=== PATIENT | male | born 1950 | race Caucasian/White ===

== ENCOUNTER 2017-08-12 02:52 | Inpatient (IN) | payer MEDICARE, OTHER ==
[2017-08-12 03:37] LABS: ADD MAN DIFF? NO
[2017-08-12 03:52] LABS: INR 1.11; PROTIME 14.5 Sec (11.9-14.9); PT RATIO 1.1
[2017-08-12] MEDS: NITROGLYCERIN 2% 1 GM OINT PKT TD (03:52)
[2017-08-12 03:53] LABS: PARTIAL THROMBOPLASTIN TIME 26.9 Sec (25.0-35.0)
[2017-08-12 03:56] LABS: ALANINE AMINOTRANSFERASE 37 IU/L (13-69); ALBUMIN 3.6 g/dl (3.3-4.9); ALBUMIN/GLOBULIN RATIO 1.09; ALKALINE PHOSPHATASE 78 IU/L (42-121); ANION GAP 17 (8-16); ASPARTATE AMINO TRANSFERASE 27 IU/L (15-46); BILIRUBIN,INDIRECT 0.7 mg/dl (0-1.1); BILIRUBIN,TOTAL 0.7 mg/dl (0.2-1.3); BLOOD UREA NITROGEN 35 mg/dl (7-20); CALCIUM 8.4 mg/dl (8.4-10.2); CARBON DIOXIDE 22 mmol/L (21-31); CHLORIDE 109 mmol/L (97-110); CREATININE 1.55 mg/dl (0.61-1.24); GLUCOSE 214 mg/dl (70-220); LIPASE 221 U/L (23-300); SODIUM 143 mmol/L (135-144); TOTAL PROTEIN 6.9 g/dl (6.1-8.1)
[2017-08-12 04:04] LABS: BASOPHIL # 0.1 10^3/ul (0.0-0.1); BASOPHILS % 0.8 % (0.0-2.0); EOSINOPHILS # 0.4 10^3/ul (0.0-0.5); EOSINOPHILS % 3.3 % (0.0-7.0); HEMATOCRIT 41.4 % (42.0-52.0); HEMOGLOBIN 13.1 g/dl (14.0-18.0); LYMPHOCYTES # 1.4 10^3/ul (0.8-2.9); LYMPHOCYTES % 12.5 % (15.0-51.0); MEAN CORPUSCULAR HGB CONC 31.6 g/dl (32.0-37.0); MEAN CORPUSCULAR VOLUME 94.7 fl (82.0-101.0); MONOCYTE # 0.8 10^3/ul (0.3-0.9); MONOCYTES % 6.9 % (0.0-11.0); NEUTROPHIL # 8.4 10^3/ul (1.6-7.5); NEUTROPHILS % 75.8 % (39.0-77.0); PLATELET COUNT 198 10^3/UL (140-415); RED BLOOD COUNT 4.37 10^6/ul (4.70-6.10); RED CELL DISTRIBUTION WIDTH 14.4 % (11.5-14.5)
[2017-08-12 04:35] LABS: TROPONIN-I 0.017 ng/ml (0.00-0.12)
[2017-08-12] MEDS ORDERED: ACETAMINOPHEN 325 MG TAB PO (07:30)
[2017-08-12] MEDS ORDERED: NACL 0.9% 3 ML SYG IV (07:30)
[2017-08-12] MEDS ORDERED: IPRATROPIUM (NEB) 0.5 MG/2.5 ML AMP NEB (07:30)
[2017-08-12] MEDS ORDERED: MAGNESIUM HYDROXIDE 30ML CUP PO (07:30)
[2017-08-12] MEDS ORDERED: ONDANSETRON 4 MG INJ IV (07:30)
[2017-08-12] MEDS ORDERED: LORAZEPAM 0.5 MG TAB PO (07:30)
[2017-08-12] MEDS ORDERED: BISACODYL 10 MG SUPP PR (07:30)
[2017-08-12] MEDS: LEVALBUTEROL (NEB) 1.25 MG/0.5 ML AMP HHN (07:48)
[2017-08-12] MEDS: INSULIN ASPART [NOVOLOG] 3 ML PEN SC ×7 (08:00→22:30)
[2017-08-12] MEDS ORDERED: GLUCAGON 1 MG INJ IM (09:00)
[2017-08-12] MEDS ORDERED: DEXTROSE 50% 50 ML SYRINGE IV ×2 (09:00)
[2017-08-12] MEDS ORDERED: morphine LIQ (10 MG/5 ML) CUP PO (09:00)
[2017-08-12] MEDS ORDERED: GLUCOSE GEL 15 GRAM TUBE BUCCAL (09:00)
[2017-08-12] MEDS ORDERED: GLUCOSE GEL 15 GRAM TUBE PO ×2 (09:00)
[2017-08-12] MEDS: MELOXICAM 7.5 MG TAB PO (11:14)
[2017-08-12] MEDS: HEPARIN 5,000 UNIT/0.5 ML VIAL SC (11:26)
[2017-08-12] MEDS: SENNA/DOCUSATE NA (8.6MG/50MG) TAB PO (11:27)
[2017-08-12] MEDS: TAMSULOSIN (SR) 0.4 MG CAP PO (11:27)
[2017-08-12] MEDS: FINASTERIDE 5 MG TAB PO (11:27)
[2017-08-12] MEDS: RANOLAZINE (SR) 500 MG TAB PO (11:27)
[2017-08-12] MEDS: CLOPIDOGREL 75 MG TAB PO (11:27)
[2017-08-12] MEDS: SERTRALINE 50 MG TAB PO (11:28)
[2017-08-12] MEDS: LISINOPRIL 5 MG TAB PO (11:31)
[2017-08-12] MEDS: ISOSORBIDE MONONITRATE(SR)30 MG TAB PO (11:31)
[2017-08-12] MEDS: INSULIN GLARGINE [LANtus] 3 ML PEN SC (11:43)
[2017-08-12] MEDS: NITROGLYCERIN (SL) 0.4 MG TAB SL ×2 (12:14→21:00)
[2017-08-12] MEDS: AMIODARONE 150MG/D5W BOLUS 100 ML IV ×2 (14:00→17:48)
[2017-08-12] MEDS: ENOXAPARIN 80 MG/0.8 ML SYG SC ×2 (14:00→23:43)
[2017-08-12 15:43] LABS: CREATINE KINASE 25 IU/L (23-200)
[2017-08-12 15:56] LABS: CK-MB 2.51 ng/ml (0.0-2.4); TROPONIN-I < 0.012 ng/ml (0.00-0.12)
[2017-08-12] MEDS: FUROSEMIDE 40 MG INJ IV (17:35)
[2017-08-12] MEDS: AMIODARONE 900 MG in DEXTROSE 5% 482 ML IV ×2 (17:48→18:42)
[2017-08-12 18:45] LABS: AADO2 Arterial 73.9 mmHg (7.0-24.0); Allen Test ACCEPTAB; Arterial Base Excess -2.5 mmol/L (-3.0-3); Arterial COHb 0.7 % (0.0-3.0); Arterial Fraction of Oxyhgb 96.2 % (93.0-99.0); Arterial HCO3 22.2 mmol/L (22.0-26.0); Arterial MetHb 0.1 % (0.0-1.5); Arterial Total Hemglobin 13.5 g/dl (12.0-18.0); Arterial pCO2 38.1 mmhg (35-45); MODE NASAL CANNULA; Site Right Radial
[2017-08-12] MEDS ORDERED: ATORVASTATIN 20 MG TAB (19:32)
[2017-08-12 19:39] LABS: LACTIC ACID 1.3 mmol/L (0.5-2.0)
[2017-08-12 19:55] LABS: CREATINE KINASE 27 IU/L (23-200)
[2017-08-12 20:05] LABS: CK INDEX 9.9; TROPONIN-I 0.021 ng/ml (0.00-0.12)
[2017-08-12 20:08] LABS: CK-MB 2.67 ng/ml (0.0-2.4)
[2017-08-12] MEDS: HYDROmorphONE 1 MG/ML SYG IV (21:58)
[2017-08-12] MEDS: RANITIDINE 150 MG TAB PO (22:36)
[2017-08-12] MEDS: ATORVASTATIN 20 MG TAB PO (22:36)
[2017-08-13] MEDS: ACCU-CHEK XX (02:00)
[2017-08-13 06:06] LABS: ADD MAN DIFF? NO
[2017-08-13 06:40] LABS: WHITE BLOOD COUNT 7.9 10^3/ul (4.8-10.8)
[2017-08-13 06:40] LABS: BASOPHIL # 0.1 10^3/ul (0.0-0.1); BASOPHILS % 0.8 % (0.0-2.0); EOSINOPHILS # 0.3 10^3/ul (0.0-0.5); EOSINOPHILS % 4.3 % (0.0-7.0); HEMATOCRIT 37.8 % (42.0-52.0); HEMOGLOBIN 12.1 g/dl (14.0-18.0); LYMPHOCYTES # 1.6 10^3/ul (0.8-2.9); LYMPHOCYTES % 19.9 % (15.0-51.0); MEAN CORPUSCULAR HEMOGLOBIN 30.3 pg (29.0-33.0); MEAN CORPUSCULAR VOLUME 94.7 fl (82.0-101.0); MEAN PLATELET VOLUME 9.4 fl (7.4-10.4); MONOCYTE # 0.6 10^3/ul (0.3-0.9); MONOCYTES % 8.1 % (0.0-11.0); NEUTROPHIL # 5.3 10^3/ul (1.6-7.5); NEUTROPHILS % 66.6 % (39.0-77.0); PLATELET COUNT 163 10^3/UL (140-415); RED BLOOD COUNT 3.99 10^6/ul (4.70-6.10); RED CELL DISTRIBUTION WIDTH 14.6 % (11.5-14.5)
[2017-08-13 07:26] LABS: CREATINE KINASE < 20 IU/L (23-200)
[2017-08-13 07:30] LABS: FREE T4 (FREE THYROXINE) 1.11 ng/dl (0.78-2.44)
[2017-08-13 07:32] LABS: ALANINE AMINOTRANSFERASE 33 IU/L (13-69); ALBUMIN 3.2 g/dl (3.3-4.9); ALBUMIN/GLOBULIN RATIO 0.96; ALKALINE PHOSPHATASE 64 IU/L (42-121); ANION GAP 12 (8-16); ASPARTATE AMINO TRANSFERASE 22 IU/L (15-46); BILIRUBIN,INDIRECT 0.6 mg/dl (0-1.1); BILIRUBIN,TOTAL 0.6 mg/dl (0.2-1.3); BLOOD UREA NITROGEN 30 mg/dl (7-20); CALCIUM 8.6 mg/dl (8.4-10.2); CARBON DIOXIDE 25 mmol/L (21-31); CHLORIDE 112 mmol/L (97-110); CHOL/HDL RATIO 3.5 RATIO; CHOLESTEROL 109 mg/dl (100-200); CREATININE 1.43 mg/dl (0.61-1.24); GLUCOSE 113 mg/dl (70-220); HDL CHOLESTEROL 31 mg/dl (30-78); LDL CHOLESTEROL,CALCULATED 56 mg/dl; MAGNESIUM 2.1 mg/dl (1.7-2.5); POTASSIUM 4.3 mmol/L (3.5-5.1); SODIUM 145 mmol/L (135-144); TOTAL PROTEIN 6.5 g/dl (6.1-8.1); TRIGLYCERIDES 110 mg/dl (0-149)
[2017-08-13 07:32] LABS: B-TYPE NATRIURETIC PEPTIDE 6510 PG/ML (0-125)
[2017-08-13 07:34] LABS: TROPONIN-I 0.023 ng/ml (0.00-0.12)
[2017-08-13 07:36] LABS: CK-MB 2.18 ng/ml (0.0-2.4)
[2017-08-13 07:47] LABS: HEMOGLOBIN A1C 6.6 % (0-5.9)
[2017-08-13] MEDS: INSULIN ASPART [NOVOLOG] 3 ML PEN SC ×7 (08:00→21:09)
[2017-08-13] MEDS: INSULIN GLARGINE [LANtus] 3 ML PEN SC (08:59)
[2017-08-13] MEDS: RANOLAZINE (SR) 500 MG TAB PO (11:05)
[2017-08-13] MEDS: ISOSORBIDE MONONITRATE(SR)30 MG TAB PO (11:06)
[2017-08-13] MEDS: CLOPIDOGREL 75 MG TAB PO (11:07)
[2017-08-13] MEDS: LEVOTHYROXINE 100 MCG TAB PO (11:07)
[2017-08-13] MEDS: TAMSULOSIN (SR) 0.4 MG CAP PO (11:07)
[2017-08-13] MEDS: LISINOPRIL 5 MG TAB PO (11:07)
[2017-08-13] MEDS: SENNA/DOCUSATE NA (8.6MG/50MG) TAB PO (11:08)
[2017-08-13] MEDS: MELOXICAM 7.5 MG TAB PO (11:08)
[2017-08-13] MEDS: FINASTERIDE 5 MG TAB PO (11:09)
[2017-08-13] MEDS: FUROSEMIDE 40 MG INJ IV (11:10)
[2017-08-13] MEDS: SERTRALINE 50 MG TAB PO (12:49)
[2017-08-13] MEDS: DIGOXIN 500 MCG INJ IV (12:49)
[2017-08-13] MEDS: NITROGLYCERIN (SL) 0.4 MG TAB SL (16:07)
[2017-08-13 17:05] LABS: PHOSPHORUS 3.7 mg/dl (2.5-4.9)
[2017-08-13] MEDS: ATORVASTATIN 20 MG TAB PO (21:03)
[2017-08-13] MEDS: RANITIDINE 150 MG TAB PO (21:03)
[2017-08-13] MEDS: ENOXAPARIN 80 MG/0.8 ML SYG SC (23:29)
[2017-08-14] MEDS: ACCU-CHEK XX (02:00)
[2017-08-14 06:07] LABS: ADD MAN DIFF? NO
[2017-08-14 06:15] LABS: BASOPHIL # 0.1 10^3/ul (0.0-0.1); BASOPHILS % 0.8 % (0.0-2.0); EOSINOPHILS # 0.4 10^3/ul (0.0-0.5); EOSINOPHILS % 4.4 % (0.0-7.0); HEMATOCRIT 38.2 % (42.0-52.0); HEMOGLOBIN 12.7 g/dl (14.0-18.0); LYMPHOCYTES # 1.4 10^3/ul (0.8-2.9); LYMPHOCYTES % 14.7 % (15.0-51.0); MEAN CORPUSCULAR HEMOGLOBIN 30.2 pg (29.0-33.0); MEAN CORPUSCULAR HGB CONC 33.2 g/dl (32.0-37.0); MEAN PLATELET VOLUME 9.7 fl (7.4-10.4); MONOCYTE # 0.7 10^3/ul (0.3-0.9); MONOCYTES % 7.5 % (0.0-11.0); NEUTROPHIL # 6.6 10^3/ul (1.6-7.5); NEUTROPHILS % 72.2 % (39.0-77.0); PLATELET COUNT 169 10^3/UL (140-415); RED CELL DISTRIBUTION WIDTH 14.6 % (11.5-14.5)
[2017-08-14 06:15] LABS: WHITE BLOOD COUNT 9.2 10^3/ul (4.8-10.8)
[2017-08-14] MEDS: LEVOTHYROXINE 100 MCG TAB PO (06:33)
[2017-08-14 06:46] LABS: CREATINE KINASE 23 IU/L (23-200)
[2017-08-14 06:49] LABS: ALANINE AMINOTRANSFERASE 37 IU/L (13-69); ALBUMIN 3.3 g/dl (3.3-4.9); ALKALINE PHOSPHATASE 66 IU/L (42-121); ANION GAP 14 (8-16); ASPARTATE AMINO TRANSFERASE 22 IU/L (15-46); BILIRUBIN,INDIRECT 0.7 mg/dl (0-1.1); BILIRUBIN,TOTAL 0.7 mg/dl (0.2-1.3); BLOOD UREA NITROGEN 32 mg/dl (7-20); CALCIUM 8.9 mg/dl (8.4-10.2); CARBON DIOXIDE 26 mmol/L (21-31); CHLORIDE 109 mmol/L (97-110); CREATININE 1.39 mg/dl (0.61-1.24); GLUCOSE 99 mg/dl (70-220); POTASSIUM 4.1 mmol/L (3.5-5.1); SODIUM 145 mmol/L (135-144); TOTAL PROTEIN 6.6 g/dl (6.1-8.1)
[2017-08-14 06:58] LABS: CK INDEX 8.7; TROPONIN-I 0.023 ng/ml (0.00-0.12)
[2017-08-14 07:08] LABS: DIGOXIN < 0.4 ng/ml (1.0-2.0)
[2017-08-14] MEDS: INSULIN ASPART [NOVOLOG] 3 ML PEN SC ×7 (08:00→20:25)
[2017-08-14] MEDS: INSULIN GLARGINE [LANtus] 3 ML PEN SC (08:07)
[2017-08-14] MEDS: CLOPIDOGREL 75 MG TAB PO (08:26)
[2017-08-14] MEDS: TAMSULOSIN (SR) 0.4 MG CAP PO (08:26)
[2017-08-14] MEDS: ISOSORBIDE MONONITRATE(SR)30 MG TAB PO (08:26)
[2017-08-14] MEDS: RANITIDINE 150 MG TAB PO (08:26)
[2017-08-14] MEDS: FINASTERIDE 5 MG TAB PO (08:27)
[2017-08-14] MEDS: MELOXICAM 7.5 MG TAB PO (08:27)
[2017-08-14] MEDS: LISINOPRIL 5 MG TAB PO (08:27)
[2017-08-14] MEDS: SENNA/DOCUSATE NA (8.6MG/50MG) TAB PO (08:27)
[2017-08-14] MEDS: FUROSEMIDE 40 MG INJ IV (08:28)
[2017-08-14] MEDS: RANOLAZINE (SR) 500 MG TAB PO (12:50)
[2017-08-14] MEDS: SERTRALINE 50 MG TAB PO (12:51)
[2017-08-14] MEDS: DIGOXIN 500 MCG INJ IV (14:51)
[2017-08-14] MEDS: ATORVASTATIN 20 MG TAB PO (20:25)
[2017-08-14] MEDS: ENOXAPARIN 80 MG/0.8 ML SYG SC (22:15)
[2017-08-15] MEDS: ACCU-CHEK XX (01:11)
[2017-08-15 05:34] LABS: ADD MAN DIFF? NO
[2017-08-15 05:42] LABS: WHITE BLOOD COUNT 6.8 10^3/ul (4.8-10.8)
[2017-08-15 05:42] LABS: BASOPHIL # 0.1 10^3/ul (0.0-0.1); BASOPHILS % 1.2 % (0.0-2.0); EOSINOPHILS # 0.4 10^3/ul (0.0-0.5); EOSINOPHILS % 5.4 % (0.0-7.0); HEMATOCRIT 41.6 % (42.0-52.0); HEMOGLOBIN 13.5 g/dl (14.0-18.0); LYMPHOCYTES # 0.8 10^3/ul (0.8-2.9); LYMPHOCYTES % 11.6 % (15.0-51.0); MEAN CORPUSCULAR HEMOGLOBIN 29.9 pg (29.0-33.0); MEAN CORPUSCULAR HGB CONC 32.5 g/dl (32.0-37.0); MEAN PLATELET VOLUME 9.6 fl (7.4-10.4); MONOCYTE # 0.7 10^3/ul (0.3-0.9); MONOCYTES % 10.7 % (0.0-11.0); NEUTROPHIL # 4.8 10^3/ul (1.6-7.5); NEUTROPHILS % 70.8 % (39.0-77.0); PLATELET COUNT 172 10^3/UL (140-415); RED BLOOD COUNT 4.52 10^6/ul (4.70-6.10); RED CELL DISTRIBUTION WIDTH 14.3 % (11.5-14.5)
[2017-08-15 06:33] LABS: ALANINE AMINOTRANSFERASE 33 IU/L (13-69); ALBUMIN 3.6 g/dl (3.3-4.9); ALBUMIN/GLOBULIN RATIO 1.12; ALKALINE PHOSPHATASE 69 IU/L (42-121); ANION GAP 14 (8-16); ASPARTATE AMINO TRANSFERASE 24 IU/L (15-46); BILIRUBIN,INDIRECT 0.7 mg/dl (0-1.1); BILIRUBIN,TOTAL 0.7 mg/dl (0.2-1.3); BLOOD UREA NITROGEN 32 mg/dl (7-20); CALCIUM 8.9 mg/dl (8.4-10.2); CARBON DIOXIDE 26 mmol/L (21-31); CHLORIDE 107 mmol/L (97-110); CREATININE 1.38 mg/dl (0.61-1.24); GLUCOSE 125 mg/dl (70-220); MAGNESIUM 1.8 mg/dl (1.7-2.5); POTASSIUM 3.9 mmol/L (3.5-5.1); SODIUM 143 mmol/L (135-144); TOTAL PROTEIN 6.8 g/dl (6.1-8.1)
[2017-08-15] MEDS: LEVOTHYROXINE 100 MCG TAB PO (06:50)
[2017-08-15] MEDS: INSULIN ASPART [NOVOLOG] 3 ML PEN SC ×7 (08:00→20:41)
[2017-08-15] MEDS: INSULIN GLARGINE [LANtus] 3 ML PEN SC (08:12)
[2017-08-15] MEDS: FUROSEMIDE 40 MG INJ IV (09:34)
[2017-08-15] MEDS: TAMSULOSIN (SR) 0.4 MG CAP PO (09:35)
[2017-08-15] MEDS: SENNA/DOCUSATE NA (8.6MG/50MG) TAB PO (09:35)
[2017-08-15] MEDS: SERTRALINE 50 MG TAB PO (09:35)
[2017-08-15] MEDS: RANOLAZINE (SR) 500 MG TAB PO (09:36)
[2017-08-15] MEDS: CLOPIDOGREL 75 MG TAB PO (09:36)
[2017-08-15] MEDS: MELOXICAM 7.5 MG TAB PO (09:36)
[2017-08-15] MEDS: LISINOPRIL 5 MG TAB PO (09:37)
[2017-08-15] MEDS: FINASTERIDE 5 MG TAB PO (09:37)
[2017-08-15] MEDS: ISOSORBIDE MONONITRATE(SR)30 MG TAB PO (09:37)
[2017-08-15] MEDS: SOD CHLORIDE 0.9% 250 ML IV (16:06)
[2017-08-15 18:07] LABS: ADD UMIC YES; UR ASCORBIC ACID NEGATIVE (NEGATIVE); UR BILIRUBIN (Dip) NEGATIVE (NEGATIVE); UR BLOOD (Dip) NEGATIVE (NEGATIVE); UR CLARITY CLEAR (CLEAR); UR COLOR YELLOW (YELLOW); UR GLUCOSE (Dip) NEGATIVE (NEGATIVE); UR KETONES (Dip) NEGATIVE (NEGATIVE); UR LEUKOCYTE ESTERASE (Dip) 1+ Leu/ul (NEGATIVE); UR NITRITE (Dip) NEGATIVE (NEGATIVE); UR RBC 1 /HPF (0-5); UR SPECIFIC GRAVITY (Dip) 1.012 (1.003-1.030); UR TOTAL PROTEIN (Dip) NEGATIVE (NEGATIVE); UR UROBILINOGEN (Dip) NEGATIVE (NEGATIVE); UR WBC 27 /HPF (0-5)
[2017-08-15 18:16] LABS: CREATININE,URINE RANDOM 79.66 mg/dl (20-370); SODIUM,URINE RANDOM 84 mmol/L (30-90)
[2017-08-15 18:17] LABS: CREATININE,URINE RANDOM 79.88 mg/dl (20-370); PROTEIN/CREAT RATIO 0.12 RATIO
[2017-08-15] MEDS: ATORVASTATIN 20 MG TAB PO (20:35)
[2017-08-15] MEDS: RANITIDINE 150 MG TAB PO (20:35)
[2017-08-16] MEDS: ACCU-CHEK XX (02:00)
[2017-08-16 06:37] LABS: ADD MAN DIFF? NO
[2017-08-16 07:09] LABS: WHITE BLOOD COUNT 5.4 10^3/ul (4.8-10.8)
[2017-08-16 07:09] LABS: BASOPHIL # 0.1 10^3/ul (0.0-0.1); BASOPHILS % 0.9 % (0.0-2.0); EOSINOPHILS # 0.4 10^3/ul (0.0-0.5); EOSINOPHILS % 6.5 % (0.0-7.0); HEMATOCRIT 40.1 % (42.0-52.0); HEMOGLOBIN 13.4 g/dl (14.0-18.0); LYMPHOCYTES # 0.6 10^3/ul (0.8-2.9); LYMPHOCYTES % 11.2 % (15.0-51.0); MEAN CORPUSCULAR HGB CONC 33.4 g/dl (32.0-37.0); MEAN CORPUSCULAR VOLUME 89.7 fl (82.0-101.0); MEAN PLATELET VOLUME 9.7 fl (7.4-10.4); MONOCYTE # 0.8 10^3/ul (0.3-0.9); MONOCYTES % 15.6 % (0.0-11.0); NEUTROPHIL # 3.5 10^3/ul (1.6-7.5); NEUTROPHILS % 65.4 % (39.0-77.0); PLATELET COUNT 152 10^3/UL (140-415); RED BLOOD COUNT 4.47 10^6/ul (4.70-6.10); RED CELL DISTRIBUTION WIDTH 14.4 % (11.5-14.5)
[2017-08-16 07:38] LABS: ALANINE AMINOTRANSFERASE 37 IU/L (13-69); ALBUMIN 3.5 g/dl (3.3-4.9); ALBUMIN/GLOBULIN RATIO 1.16; ALKALINE PHOSPHATASE 64 IU/L (42-121); ANION GAP 14 (8-16); ASPARTATE AMINO TRANSFERASE 34 IU/L (15-46); BILIRUBIN,INDIRECT 0.7 mg/dl (0-1.1); BILIRUBIN,TOTAL 0.7 mg/dl (0.2-1.3); BLOOD UREA NITROGEN 32 mg/dl (7-20); CALCIUM 8.5 mg/dl (8.4-10.2); CARBON DIOXIDE 26 mmol/L (21-31); CHLORIDE 104 mmol/L (97-110); CREATININE 1.42 mg/dl (0.61-1.24); GLUCOSE 107 mg/dl (70-220); POTASSIUM 3.6 mmol/L (3.5-5.1); SODIUM 140 mmol/L (135-144); TOTAL PROTEIN 6.5 g/dl (6.1-8.1)
[2017-08-16 07:41] LABS: B-TYPE NATRIURETIC PEPTIDE 4980 PG/ML (0-125)
[2017-08-16] MEDS: INSULIN ASPART [NOVOLOG] 3 ML PEN SC ×7 (08:00→20:29)
[2017-08-16] MEDS: LEVOTHYROXINE 100 MCG TAB PO (08:20)
[2017-08-16] MEDS: TAMSULOSIN (SR) 0.4 MG CAP PO (09:20)
[2017-08-16] MEDS: SENNA/DOCUSATE NA (8.6MG/50MG) TAB PO (09:21)
[2017-08-16] MEDS: CLOPIDOGREL 75 MG TAB PO (09:21)
[2017-08-16] MEDS: RANOLAZINE (SR) 500 MG TAB PO (09:21)
[2017-08-16] MEDS: MELOXICAM 7.5 MG TAB PO (09:21)
[2017-08-16] MEDS: SERTRALINE 50 MG TAB PO (09:21)
[2017-08-16] MEDS: FUROSEMIDE 40 MG INJ IV (09:25)
[2017-08-16] MEDS: ISOSORBIDE MONONITRATE(SR)30 MG TAB PO (09:26)
[2017-08-16] MEDS: LISINOPRIL 5 MG TAB PO (09:26)
[2017-08-16] MEDS: INSULIN GLARGINE [LANtus] 3 ML PEN SC (09:30)
[2017-08-16 11:36] LABS: DIGOXIN 0.7 ng/ml (1.0-2.0)
[2017-08-16 11:42] LABS: PHOSPHORUS 3.7 mg/dl (2.5-4.9)
[2017-08-16 11:42] LABS: MAGNESIUM 1.7 mg/dl (1.7-2.5)
[2017-08-16] MEDS: FINASTERIDE 5 MG TAB PO (12:28)
[2017-08-16 18:17] LABS: PTH CALCIUM 8.6 mg/dL (8.6-10.3)
[2017-08-16] MEDS: DIGOXIN 500 MCG INJ IV (19:16)
[2017-08-16] MEDS: RANITIDINE 150 MG TAB PO (20:28)
[2017-08-16] MEDS: ATORVASTATIN 20 MG TAB PO (20:28)
[2017-08-16] MEDS: APIXABAN 5 MG TABLET PO (20:29)
[2017-08-17] MEDS: ACCU-CHEK XX (02:00)
[2017-08-17 07:23] LABS: ADD MAN DIFF? NO
[2017-08-17 07:26] LABS: BASOPHILS % 0.8 % (0.0-2.0); EOSINOPHILS # 0.4 10^3/ul (0.0-0.5); EOSINOPHILS % 7.6 % (0.0-7.0); HEMOGLOBIN 13.7 g/dl (14.0-18.0); LYMPHOCYTES # 1.3 10^3/ul (0.8-2.9); LYMPHOCYTES % 25.8 % (15.0-51.0); MEAN CORPUSCULAR HEMOGLOBIN 29.3 pg (29.0-33.0); MEAN CORPUSCULAR HGB CONC 32.6 g/dl (32.0-37.0); MEAN CORPUSCULAR VOLUME 89.9 fl (82.0-101.0); MEAN PLATELET VOLUME 9.8 fl (7.4-10.4); NEUTROPHIL # 2.4 10^3/ul (1.6-7.5); NEUTROPHILS % 46.2 % (39.0-77.0); PLATELET COUNT 159 10^3/UL (140-415); POSITIVE DIFF @See below; RED BLOOD COUNT 4.67 10^6/ul (4.70-6.10); RED CELL DISTRIBUTION WIDTH 14.3 % (11.5-14.5)
[2017-08-17 07:26] LABS: WHITE BLOOD COUNT 5.2 10^3/ul (4.8-10.8)
[2017-08-17 07:42] LABS: MONOCYTES % 19.2 % (0.0-11.0)
[2017-08-17 07:53] LABS: DIGOXIN 0.7 ng/ml (1.0-2.0)
[2017-08-17 07:53] LABS: PHOSPHORUS 4.3 mg/dl (2.5-4.9)
[2017-08-17 07:53] LABS: MAGNESIUM 1.9 mg/dl (1.7-2.5)
[2017-08-17 07:54] LABS: ALANINE AMINOTRANSFERASE 47 IU/L (13-69); ALBUMIN 3.5 g/dl (3.3-4.9); ALKALINE PHOSPHATASE 64 IU/L (42-121); ANION GAP 14 (8-16); ASPARTATE AMINO TRANSFERASE 49 IU/L (15-46); BILIRUBIN,INDIRECT 0.4 mg/dl (0-1.1); BILIRUBIN,TOTAL 0.4 mg/dl (0.2-1.3); BLOOD UREA NITROGEN 36 mg/dl (7-20); CALCIUM 8.3 mg/dl (8.4-10.2); CARBON DIOXIDE 27 mmol/L (21-31); CHLORIDE 103 mmol/L (97-110); CREATININE 1.63 mg/dl (0.61-1.24); GLUCOSE 105 mg/dl (70-220); POTASSIUM 3.7 mmol/L (3.5-5.1); SODIUM 140 mmol/L (135-144); TOTAL PROTEIN 6.4 g/dl (6.1-8.1)
[2017-08-17] MEDS: INSULIN ASPART [NOVOLOG] 3 ML PEN SC ×7 (08:00→21:00)
[2017-08-17 08:01] LABS: PTH INTACT 99 pg/mL (14-64)
[2017-08-17] MEDS: LEVOTHYROXINE 100 MCG TAB PO (08:07)
[2017-08-17] MEDS: CLOPIDOGREL 75 MG TAB PO (08:09)
[2017-08-17] MEDS: TAMSULOSIN (SR) 0.4 MG CAP PO (08:09)
[2017-08-17] MEDS: APIXABAN 5 MG TABLET PO ×2 (08:09→21:13)
[2017-08-17] MEDS: ISOSORBIDE MONONITRATE(SR)30 MG TAB PO (08:09)
[2017-08-17] MEDS: SENNA/DOCUSATE NA (8.6MG/50MG) TAB PO (08:10)
[2017-08-17] MEDS: RANOLAZINE (SR) 500 MG TAB PO (08:10)
[2017-08-17] MEDS: SERTRALINE 50 MG TAB PO (08:11)
[2017-08-17] MEDS: LISINOPRIL 5 MG TAB PO (08:11)
[2017-08-17] MEDS: FINASTERIDE 5 MG TAB PO (08:14)
[2017-08-17] MEDS: INSULIN GLARGINE [LANtus] 3 ML PEN SC (08:16)
[2017-08-17 08:29] LABS: ANISOCYTOSIS 1+ (0-0); BAND NEUTROPHILS #M 0.5 10^3/ul (0.0-0.6); BAND NEUTROPHILS % (M) 10 % (0-4); EOSINOPHILS % (M) 5 % (0-7); GIANT THROMBO% (M) 1 % (0-0); LYMPHOCYTES #M 1.6 10^3/ul (0.8-2.9); LYMPHOCYTES % (M) 31 % (15-51); MICROCYTOSIS 1+ (0-0); MONOCYTE #M 0.8 10^3/ul (0.3-0.9); MONOCYTES % (M) 16 % (0-11); PLATELET ESTIMATE NORMAL; POIKILOCYTOSIS 2+ (0-0); REACTIVE LYMPHOCYTES% (M) 1 % (0-0); SEGMENTED NEUTROPHILS (M) % 37 % (39-77); SMUDGE%M 5 % (0-0)
[2017-08-17] MEDS: DIGOXIN 0.125 MG TAB NGT (12:35)
[2017-08-17] MEDS: ATORVASTATIN 20 MG TAB PO (21:13)
[2017-08-17] MEDS: RANITIDINE 150 MG TAB PO (21:13)
[2017-08-18] MEDS: ACCU-CHEK XX (02:00)
[2017-08-18] MEDS: LEVOTHYROXINE 100 MCG TAB PO (06:43)
[2017-08-18] MEDS: INSULIN ASPART [NOVOLOG] 3 ML PEN SC ×7 (07:53→21:00)
[2017-08-18] MEDS: FINASTERIDE 5 MG TAB PO (08:24)
[2017-08-18] MEDS: RANOLAZINE (SR) 500 MG TAB PO (08:24)
[2017-08-18] MEDS: CLOPIDOGREL 75 MG TAB PO (08:24)
[2017-08-18] MEDS: LISINOPRIL 5 MG TAB PO (08:24)
[2017-08-18] MEDS: ISOSORBIDE MONONITRATE(SR)30 MG TAB PO (08:25)
[2017-08-18] MEDS: TAMSULOSIN (SR) 0.4 MG CAP PO (08:25)
[2017-08-18] MEDS: SENNA/DOCUSATE NA (8.6MG/50MG) TAB PO (08:25)
[2017-08-18] MEDS: SERTRALINE 50 MG TAB PO (08:25)
[2017-08-18] MEDS: APIXABAN 5 MG TABLET PO ×2 (08:26→21:45)
[2017-08-18] MEDS: INSULIN GLARGINE [LANtus] 3 ML PEN SC (08:33)
[2017-08-18 08:38] LABS: ADD MAN DIFF? NO
[2017-08-18 08:47] LABS: WHITE BLOOD COUNT 7.1 10^3/ul (4.8-10.8)
[2017-08-18 08:47] LABS: BASOPHIL # 0.1 10^3/ul (0.0-0.1); BASOPHILS % 0.8 % (0.0-2.0); EOSINOPHILS # 0.4 10^3/ul (0.0-0.5); EOSINOPHILS % 6.2 % (0.0-7.0); HEMATOCRIT 42.6 % (42.0-52.0); LYMPHOCYTES # 1.8 10^3/ul (0.8-2.9); LYMPHOCYTES % 25.1 % (15.0-51.0); MEAN CORPUSCULAR HGB CONC 32.9 g/dl (32.0-37.0); MEAN CORPUSCULAR VOLUME 91.4 fl (82.0-101.0); MEAN PLATELET VOLUME 9.9 fl (7.4-10.4); MONOCYTES % 13.4 % (0.0-11.0); NEUTROPHIL # 3.8 10^3/ul (1.6-7.5); NEUTROPHILS % 53.9 % (39.0-77.0); PLATELET COUNT 161 10^3/UL (140-415); RED BLOOD COUNT 4.66 10^6/ul (4.70-6.10); RED CELL DISTRIBUTION WIDTH 14.5 % (11.5-14.5)
[2017-08-18 08:58] LABS: ANION GAP 15 (8-16); BLOOD UREA NITROGEN 39 mg/dl (7-20); CALCIUM 8.7 mg/dl (8.4-10.2); CARBON DIOXIDE 27 mmol/L (21-31); CHLORIDE 104 mmol/L (97-110); CREATININE 1.75 mg/dl (0.61-1.24); GLUCOSE 84 mg/dl (70-220); POTASSIUM 4.2 mmol/L (3.5-5.1); SODIUM 142 mmol/L (135-144)
[2017-08-18 09:28] LABS: MAGNESIUM 2.1 mg/dl (1.7-2.5)
[2017-08-18 09:28] LABS: PHOSPHORUS 4.6 mg/dl (2.5-4.9)
[2017-08-18] MEDS: ATORVASTATIN 20 MG TAB PO (21:45)
[2017-08-18] MEDS: RANITIDINE 150 MG TAB PO (22:27)
[2017-08-19] MEDS: ACCU-CHEK XX (02:00)
[2017-08-19] MEDS: INSULIN ASPART [NOVOLOG] 3 ML PEN SC ×4 (08:00→12:06)
[2017-08-19] MEDS: INSULIN GLARGINE [LANtus] 3 ML PEN SC (08:28)
[2017-08-19] MEDS: LEVOTHYROXINE 100 MCG TAB PO (08:28)
[2017-08-19] MEDS: SENNA/DOCUSATE NA (8.6MG/50MG) TAB PO (08:29)
[2017-08-19] MEDS: SERTRALINE 50 MG TAB PO (08:30)
[2017-08-19] MEDS: FINASTERIDE 5 MG TAB PO (08:30)
[2017-08-19] MEDS: RANOLAZINE (SR) 500 MG TAB PO (08:30)
[2017-08-19] MEDS: CLOPIDOGREL 75 MG TAB PO (08:30)
[2017-08-19] MEDS: TAMSULOSIN (SR) 0.4 MG CAP PO (08:30)
[2017-08-19] MEDS: ISOSORBIDE MONONITRATE(SR)30 MG TAB PO (08:31)
[2017-08-19] MEDS: APIXABAN 5 MG TABLET PO (08:31)
[2017-08-19 09:06] LABS: ADD MAN DIFF? NO
[2017-08-19 09:08] LABS: BASOPHIL # 0.1 10^3/ul (0.0-0.1); BASOPHILS % 0.8 % (0.0-2.0); EOSINOPHILS # 0.3 10^3/ul (0.0-0.5); EOSINOPHILS % 5.5 % (0.0-7.0); HEMATOCRIT 43.1 % (42.0-52.0); HEMOGLOBIN 14.4 g/dl (14.0-18.0); LYMPHOCYTES # 1.8 10^3/ul (0.8-2.9); LYMPHOCYTES % 30.4 % (15.0-51.0); MEAN CORPUSCULAR HEMOGLOBIN 29.9 pg (29.0-33.0); MEAN CORPUSCULAR HGB CONC 33.4 g/dl (32.0-37.0); MEAN CORPUSCULAR VOLUME 89.6 fl (82.0-101.0); MEAN PLATELET VOLUME 9.4 fl (7.4-10.4); MONOCYTE # 0.7 10^3/ul (0.3-0.9); NEUTROPHIL # 3.1 10^3/ul (1.6-7.5); PLATELET COUNT 171 10^3/UL (140-415); POSITIVE DIFF @See below; RED BLOOD COUNT 4.81 10^6/ul (4.70-6.10); RED CELL DISTRIBUTION WIDTH 13.9 % (11.5-14.5)
[2017-08-19 09:37] LABS: ANION GAP 16 (8-16); BLOOD UREA NITROGEN 34 mg/dl (7-20); CALCIUM 8.6 mg/dl (8.4-10.2); CARBON DIOXIDE 24 mmol/L (21-31); CHLORIDE 108 mmol/L (97-110); CREATININE 1.45 mg/dl (0.61-1.24); GLUCOSE 91 mg/dl (70-220); POTASSIUM 3.8 mmol/L (3.5-5.1); SODIUM 144 mmol/L (135-144)
[2017-08-19 09:51] LABS: PHOSPHORUS 3.6 mg/dl (2.5-4.9)
[2017-08-19] MEDS: DIGOXIN 0.125 MG TAB NGT (13:26)
[2017-08-19] MEDS ORDERED: LEVOFLOXACIN 500MG/D5W (PMX) 100 ML IVPB (14:00)
[2017-08-19] MEDS: LEVOFLOXACIN 750MG/D5W (PMX) 150 ML IVPB ×2 (15:00→17:29)
== END 2017-08-19 18:35 | DRG 291 ==
LOC: E/R 02:52 → MS3 04:42 → MS4 21:13
DX: I13.0 Hypertensive heart and chronic kidney disease with heart failure and stage 1 through stage 4 chronic kidney disease, or unspecified chronic kidney disease (principal); I50.43 Acute on chronic combined systolic (congestive) and diastolic (congestive) heart failure; N17.9 Acute kidney failure, unspecified; I48.91 Unspecified atrial fibrillation; E11.21 Type 2 diabetes mellitus with diabetic nephropathy; E11.22 Type 2 diabetes mellitus with diabetic chronic kidney disease; N18.9 Chronic kidney disease, unspecified; I25.2 Old myocardial infarction; Z95.1 Presence of aortocoronary bypass graft; E03.9 Hypothyroidism, unspecified; Z86.73 Personal history of transient ischemic attack (TIA), and cerebral infarction without residual deficits; I25.5 Ischemic cardiomyopathy; Z72.0 Tobacco use; Z86.718 Personal history of other venous thrombosis and embolism; Z79.01 Long term (current) use of anticoagulants; N40.0 Benign prostatic hyperplasia without lower urinary tract symptoms
CPT/HCPCS: 36415; 36600; 71010; 73070-52; 73560; 76775; 80048; 80053; 80061; 80162; 81001; 81003; 82550; 82553; 82570; 82803; 82962; 83036; 83605; 83690; 83735; 83880; 83970; 84100; 84155; 84300; 84439; 84443; 84484; 85025; 85610; 85730; 93005; 93306; 93970; 94664; 96372; 97110; 97116; 97163; 97530; 99285-25; G0378

== ENCOUNTER 2018-06-06 07:29 | Observation (INO) | payer MEDICARE, OTHER ==
[~2018-06-06 07:29] MED LIST: ACETYLCYSTEINE 600 MG CAP PO
[2018-06-06 09:50] LABS: ADD MAN DIFF? NO
[2018-06-06 09:53] LABS: BASOPHIL # 0.1 10^3/ul (0.0-0.1); BASOPHILS % 0.9 % (0.0-2.0); EOSINOPHILS # 0.3 10^3/ul (0.0-0.5); EOSINOPHILS % 3.8 % (0.0-7.0); HEMATOCRIT 43.2 % (42.0-52.0); HEMOGLOBIN 14.4 g/dl (14.0-18.0); LYMPHOCYTES # 1.2 10^3/ul (0.8-2.9); MEAN CORPUSCULAR HEMOGLOBIN 30.3 pg (29.0-33.0); MEAN CORPUSCULAR HGB CONC 33.3 g/dl (32.0-37.0); MEAN CORPUSCULAR VOLUME 90.8 fl (82.0-101.0); MEAN PLATELET VOLUME 9.6 fl (7.4-10.4); MONOCYTE # 0.6 10^3/ul (0.3-0.9); MONOCYTES % 9.1 % (0.0-11.0); NEUTROPHIL # 4.8 10^3/ul (1.6-7.5); NEUTROPHILS % 68.2 % (39.0-77.0); PLATELET COUNT 149 10^3/UL (140-415); RED BLOOD COUNT 4.76 10^6/ul (4.70-6.10); RED CELL DISTRIBUTION WIDTH 13.6 % (11.5-14.5)
[2018-06-06] MEDS ORDERED: POLYMYXIN/BACITRACIN 1L IRRIG (10:05)
[2018-06-06 10:15] LABS: ALANINE AMINOTRANSFERASE 37 IU/L (13-69); ALBUMIN 3.6 g/dl (3.3-4.9); ALBUMIN/GLOBULIN RATIO 1.05; ALKALINE PHOSPHATASE 72 IU/L (42-121); ANION GAP 11 (8-16); ASPARTATE AMINO TRANSFERASE 25 IU/L (15-46); BILIRUBIN,INDIRECT 0.7 mg/dl (0-1.1); BILIRUBIN,TOTAL 0.7 mg/dl (0.2-1.3); BLOOD UREA NITROGEN 32 mg/dl (7-20); CALCIUM 9.3 mg/dl (8.4-10.2); CARBON DIOXIDE 28 mmol/L (21-31); CHLORIDE 107 mmol/L (97-110); CREATININE 1.55 mg/dl (0.61-1.24); GLUCOSE 208 mg/dl (70-220); SODIUM 141 mmol/L (135-144)
[2018-06-06 10:24] LABS: B-TYPE NATRIURETIC PEPTIDE 1120 PG/ML (0-125)
[2018-06-06 10:29] LABS: INR 1.02; PARTIAL THROMBOPLASTIN TIME 26.4 Sec (23.0-35.0); PROTIME 13.5 Sec (11.9-14.9); PT RATIO 1.1
[2018-06-06] MEDS ORDERED: IODIXANOL LOCM 50 ML BTL (10:30)
[2018-06-06] MEDS ORDERED: LIDOCAINE 1%/EPI 30 ML INJ (10:30)
[2018-06-06] MEDS ORDERED: SOD CHLORIDE 0.9% 500 ML ×2 (10:30→10:32)
[2018-06-06] MEDS ORDERED: VANCOMYCIN 1 GM 250 ML IVPB (10:30)
[2018-06-06 10:39] LABS: CHOL/HDL RATIO 3.8 RATIO; HDL CHOLESTEROL 42 mg/dl (30-78); LDL CHOLESTEROL,CALCULATED 77 mg/dl; TRIGLYCERIDES 221 mg/dl (0-149)
[2018-06-06 10:39] LABS: CHOLESTEROL 163 mg/dl (100-200)
[2018-06-06] MEDS ORDERED: MIDAZOLAM 1 MG/ML 2 ML INJ (11:32)
[2018-06-06] MEDS ORDERED: FENTAnyl 50 MCG/ML VIAL ×3 (11:33→11:39)
[2018-06-06] MEDS ORDERED: ETOMIDATE 20 MG INJ (11:39)
[2018-06-06] MEDS ORDERED: PHENYLephrine (100 MCG/ML) 5ML SYG (11:40)
[2018-06-06] MEDS ORDERED: VANCOMYCIN IV PER PHARMACY XX (13:00)
[2018-06-06] MEDS ORDERED: SENNA TAB PO (13:30)
[2018-06-06] MEDS ORDERED: ONDANSETRON 4 MG TAB PO (13:30)
[2018-06-06] MEDS ORDERED: MAGNESIUM HYDROXIDE 30ML CUP PO (13:30)
[2018-06-06] MEDS: morphine 2 MG INJ IV ×2 (13:41→20:15)
[2018-06-06] MEDS: SOD CHLORIDE 0.9% 500 ML IV (13:52)
[2018-06-06] MEDS ORDERED: ACETAMINOPHEN 325 MG TAB PO (17:00)
[2018-06-06] MEDS: VANCOMYCIN 1 GM 250 ML IVPB (17:07)
[2018-06-06] MEDS: HYDROCODONE/APAP (5/325) TAB PO (17:07)
[2018-06-06] MEDS: DIGOXIN 0.125 MG TAB PO (18:17)
[2018-06-06] MEDS: glipiZIDE (XL) 2.5 MG TAB PO (20:22)
[2018-06-06] MEDS: RANITIDINE 150 MG TAB PO (20:23)
[2018-06-06] MEDS: TAMSULOSIN (SR) 0.4 MG CAP PO (20:23)
[2018-06-07] MEDS: morphine 2 MG INJ IV ×4 (00:34→15:27)
[2018-06-07] MEDS: LEVOTHYROXINE 150 MCG TAB PO (06:31)
[2018-06-07 07:09] LABS: ADD MAN DIFF? NO
[2018-06-07 07:14] LABS: BASOPHIL # 0.1 10^3/ul (0.0-0.1); BASOPHILS % 0.8 % (0.0-2.0); EOSINOPHILS # 0.2 10^3/ul (0.0-0.5); EOSINOPHILS % 1.6 % (0.0-7.0); HEMOGLOBIN 13.3 g/dl (14.0-18.0); LYMPHOCYTES % 8.6 % (15.0-51.0); MEAN CORPUSCULAR HEMOGLOBIN 30.2 pg (29.0-33.0); MEAN CORPUSCULAR HGB CONC 33.3 g/dl (32.0-37.0); MEAN CORPUSCULAR VOLUME 90.7 fl (82.0-101.0); MEAN PLATELET VOLUME 9.9 fl (7.4-10.4); MONOCYTE # 0.9 10^3/ul (0.3-0.9); MONOCYTES % 7.9 % (0.0-11.0); NEUTROPHIL # 9.4 10^3/ul (1.6-7.5); NEUTROPHILS % 80.7 % (39.0-77.0); PLATELET COUNT 136 10^3/UL (140-415); RED BLOOD COUNT 4.41 10^6/ul (4.70-6.10); RED CELL DISTRIBUTION WIDTH 13.4 % (11.5-14.5)
[2018-06-07 07:14] LABS: WHITE BLOOD COUNT 11.7 10^3/ul (4.8-10.8)
[2018-06-07 07:32] LABS: ALANINE AMINOTRANSFERASE 29 IU/L (13-69); ALBUMIN 3.1 g/dl (3.3-4.9); ALKALINE PHOSPHATASE 65 IU/L (42-121); ANION GAP 9 (8-16); ASPARTATE AMINO TRANSFERASE 25 IU/L (15-46); BILIRUBIN,INDIRECT 0.7 mg/dl (0-1.1); BILIRUBIN,TOTAL 0.7 mg/dl (0.2-1.3); BLOOD UREA NITROGEN 22 mg/dl (7-20); CALCIUM 8.5 mg/dl (8.4-10.2); CARBON DIOXIDE 27 mmol/L (21-31); CHLORIDE 108 mmol/L (97-110); CREATININE 1.28 mg/dl (0.61-1.24); GLUCOSE 214 mg/dl (70-220); POTASSIUM 4.3 mmol/L (3.5-5.1); SODIUM 140 mmol/L (135-144); TOTAL PROTEIN 6.2 g/dl (6.1-8.1)
[2018-06-07 07:40] LABS: ANION GAP 9 (8-16); BLOOD UREA NITROGEN 21 mg/dl (7-20); CALCIUM 8.3 mg/dl (8.4-10.2); CARBON DIOXIDE 26 mmol/L (21-31); CHLORIDE 111 mmol/L (97-110); CREATININE 1.22 mg/dl (0.61-1.24); GLUCOSE 210 mg/dl (70-220); MAGNESIUM 1.8 mg/dl (1.7-2.5); PHOSPHORUS 2.7 mg/dl (2.5-4.9); POTASSIUM 4.5 mmol/L (3.5-5.1); SODIUM 141 mmol/L (135-144)
[2018-06-07] MEDS: MULTIVITAMINS THERAPEUTIC TAB PO (09:04)
[2018-06-07] MEDS: FINASTERIDE 5 MG TAB PO (09:05)
[2018-06-07] MEDS: RANOLAZINE (SR) 500 MG TAB PO (09:06)
[2018-06-07] MEDS: LOSARTAN 25 MG TAB PO (09:07)
[2018-06-07] MEDS: RANITIDINE 150 MG TAB PO (09:07)
[2018-06-07] MEDS: SERTRALINE 50 MG TAB PO (09:07)
[2018-06-07] MEDS: glipiZIDE (XL) 2.5 MG TAB PO (09:07)
[2018-06-07] MEDS: CLOPIDOGREL 75 MG TAB PO (10:52)
== END 2018-06-07 16:10 ==
LOC: SDS 07:29 → REC 16:02 → TEL 17:32
PROVIDERS: Internal Medicine Interventional Cardiology
DX: I50.9 Heart failure, unspecified (principal); I42.9 Cardiomyopathy, unspecified; I63.9 Cerebral infarction, unspecified; I48.91 Unspecified atrial fibrillation; N18.3 Chronic kidney disease, stage 3 (moderate); E03.9 Hypothyroidism, unspecified; E78.5 Hyperlipidemia, unspecified
CPT/HCPCS: 33249; 71045; 80048; 80053; 80061; 83735; 83880; 84100; 85025; 85610; 85730; 93005; 99217; G0378

== ENCOUNTER 2018-07-15 20:33 | Observation (INO) | payer MEDICARE, OTHER ==
[2018-07-15 21:11] LABS: ADD MAN DIFF? NO
[2018-07-15 21:16] LABS: BASOPHIL # 0.1 10^3/ul (0.0-0.1); BASOPHILS % 0.9 % (0.0-2.0); EOSINOPHILS # 0.4 10^3/ul (0.0-0.5); EOSINOPHILS % 3.6 % (0.0-7.0); HEMOGLOBIN 12.3 g/dl (14.0-18.0); LYMPHOCYTES # 1.8 10^3/ul (0.8-2.9); LYMPHOCYTES % 16.9 % (15.0-51.0); MEAN CORPUSCULAR HEMOGLOBIN 30.3 pg (29.0-33.0); MEAN CORPUSCULAR HGB CONC 33.2 g/dl (32.0-37.0); MEAN CORPUSCULAR VOLUME 91.1 fl (82.0-101.0); MEAN PLATELET VOLUME 9.3 fl (7.4-10.4); NEUTROPHIL # 7.1 10^3/ul (1.6-7.5); NEUTROPHILS % 67.7 % (39.0-77.0); PLATELET COUNT 180 10^3/UL (140-415); RED BLOOD COUNT 4.06 10^6/ul (4.70-6.10); RED CELL DISTRIBUTION WIDTH 13.1 % (11.5-14.5)
[2018-07-15 21:16] LABS: WHITE BLOOD COUNT 10.4 10^3/ul (4.8-10.8)
[2018-07-15 21:32] LABS: URINE BLOOD (Dip) POC Trace-lysed (NEGATIVE); URINE GLUCOSE (Dip) POC Negative (NEGATIVE); URINE KETONES (Dip) POC Negative (NEGATIVE); URINE LEUKOCYTE EST (Dip) POC 2+ (NEGATIVE); URINE NITRITE (Dip) POC Negative (NEGATIVE); URINE TOTAL PROTEIN POC 1+ (NEGATIVE)
[2018-07-15 21:32] LABS: URINE PH (Dip) POC 5.5 (5.0-8.5)
[2018-07-15 21:36] LABS: ALANINE AMINOTRANSFERASE 25 IU/L (13-69); ALBUMIN 3.4 g/dl (3.3-4.9); ALKALINE PHOSPHATASE 90 IU/L (42-121); ANION GAP 10 (5-13); ASPARTATE AMINO TRANSFERASE 22 IU/L (15-46); BILIRUBIN,INDIRECT 0.2 mg/dl (0-1.1); BILIRUBIN,TOTAL 0.2 mg/dl (0.2-1.3); BLOOD UREA NITROGEN 37 mg/dl (7-20); CALCIUM 8.3 mg/dl (8.4-10.2); CARBON DIOXIDE 24 mmol/L (21-31); CHLORIDE 107 mmol/L (97-110); CREATININE 1.57 mg/dl (0.61-1.24); Estimated GFR 44 mL/min (>60); GLUCOSE 142 mg/dl (70-220); LIPASE 102 U/L (23-300); POTASSIUM 4.7 mmol/L (3.5-5.1); SODIUM 141 mmol/L (135-144)
[2018-07-16] MEDS: CIPROFLOXACIN 400MG/D5W 200 ML IVPB (00:35)
[2018-07-16] MEDS ORDERED: NITROGLYCERIN (SL) 0.4 MG TAB SL (01:00)
[2018-07-16] MEDS ORDERED: HYDROCODONE/APAP (5/325) TAB PO (01:00)
[2018-07-16] MEDS ORDERED: ALBUTEROL/IPRATROPIUM (NEB) 3 ML AMP INH (01:00)
[2018-07-16] MEDS ORDERED: ACETAMINOPHEN 325 MG TAB PO (01:00)
[2018-07-16] MEDS ORDERED: ONDANSETRON 4 MG INJ IV (01:00)
[2018-07-16] MEDS ORDERED: NACL 0.9% 3 ML SYG IV (01:00)
[2018-07-16 05:08] LABS: ADD MAN DIFF? NO
[2018-07-16 05:25] LABS: BASOPHIL # 0.1 10^3/ul (0.0-0.1); EOSINOPHILS # 0.4 10^3/ul (0.0-0.5); EOSINOPHILS % 4.8 % (0.0-7.0); HEMATOCRIT 37.7 % (42.0-52.0); HEMOGLOBIN 12.4 g/dl (14.0-18.0); LYMPHOCYTES # 1.8 10^3/ul (0.8-2.9); LYMPHOCYTES % 22.1 % (15.0-51.0); MEAN CORPUSCULAR HEMOGLOBIN 29.7 pg (29.0-33.0); MEAN CORPUSCULAR HGB CONC 32.9 g/dl (32.0-37.0); MEAN CORPUSCULAR VOLUME 90.4 fl (82.0-101.0); MEAN PLATELET VOLUME 9.7 fl (7.4-10.4); MONOCYTE # 0.8 10^3/ul (0.3-0.9); MONOCYTES % 9.5 % (0.0-11.0); NEUTROPHIL # 4.9 10^3/ul (1.6-7.5); NEUTROPHILS % 61.3 % (39.0-77.0); PLATELET COUNT 166 10^3/UL (140-415); RED BLOOD COUNT 4.17 10^6/ul (4.70-6.10); RED CELL DISTRIBUTION WIDTH 13.2 % (11.5-14.5)
[2018-07-16 05:29] LABS: HEMOGLOBIN A1C 7.2 % (0-5.9)
[2018-07-16] MEDS: PANTOPRAZOLE 40 MG INJ IV (05:56)
[2018-07-16 05:59] LABS: ALANINE AMINOTRANSFERASE 26 IU/L (13-69); ALBUMIN 3.3 g/dl (3.3-4.9); ALBUMIN/GLOBULIN RATIO 1.37; ALKALINE PHOSPHATASE 78 IU/L (42-121); ANION GAP 8 (5-13); ASPARTATE AMINO TRANSFERASE 17 IU/L (15-46); BILIRUBIN,INDIRECT 0.3 mg/dl (0-1.1); BILIRUBIN,TOTAL 0.3 mg/dl (0.2-1.3); BLOOD UREA NITROGEN 32 mg/dl (7-20); CALCIUM 8.4 mg/dl (8.4-10.2); CARBON DIOXIDE 24 mmol/L (21-31); CHLORIDE 109 mmol/L (97-110); CREATININE 1.49 mg/dl (0.61-1.24); Estimated GFR 47 mL/min (>60); GLUCOSE 134 mg/dl (70-220); POTASSIUM 4.7 mmol/L (3.5-5.1); SODIUM 141 mmol/L (135-144); TOTAL PROTEIN 5.7 g/dl (6.1-8.1)
[2018-07-16 06:06] LABS: FREE THYROXINE INDEX (Calc) 2.83 ug/ml (0.65-3.89); T3 UPTAKE 41.6 % (23.5-40.5); T4 (THYROXINE) 6.8 ug/dl (5.5-11.0)
[2018-07-16 08:08] LABS: INR 1.01; PROTIME 13.4 Sec (11.9-14.9)
[2018-07-16 08:09] LABS: PARTIAL THROMBOPLASTIN TIME 25.8 Sec (23.0-35.0)
[2018-07-16] MEDS: FINASTERIDE 5 MG TAB PO (08:56)
[2018-07-16] MEDS: RANOLAZINE (SR) 500 MG TAB PO (08:56)
[2018-07-16] MEDS: DIGOXIN 0.125 MG TAB PO (13:27)
[2018-07-16] MEDS: BISACODYL (EC) 5 MG TAB PO (16:46)
[2018-07-16] MEDS: MAGNESIUM CITRATE 300 ML BTL PO (17:17)
[2018-07-16] MEDS: POLYETHYLENE GLYCOL 3350 119 GM POWDER PO (18:10)
[2018-07-17 05:31] LABS: ADD MAN DIFF? NO
[2018-07-17 05:47] LABS: WHITE BLOOD COUNT 8.4 10^3/ul (4.8-10.8)
[2018-07-17 05:47] LABS: BASOPHIL # 0.1 10^3/ul (0.0-0.1); BASOPHILS % 0.8 % (0.0-2.0); EOSINOPHILS # 0.4 10^3/ul (0.0-0.5); EOSINOPHILS % 4.6 % (0.0-7.0); HEMATOCRIT 40.3 % (42.0-52.0); HEMOGLOBIN 13.3 g/dl (14.0-18.0); LYMPHOCYTES # 1.4 10^3/ul (0.8-2.9); LYMPHOCYTES % 17.1 % (15.0-51.0); MEAN CORPUSCULAR HEMOGLOBIN 29.8 pg (29.0-33.0); MEAN CORPUSCULAR VOLUME 90.4 fl (82.0-101.0); MEAN PLATELET VOLUME 9.3 fl (7.4-10.4); MONOCYTE # 0.8 10^3/ul (0.3-0.9); NEUTROPHIL # 5.7 10^3/ul (1.6-7.5); NEUTROPHILS % 67.8 % (39.0-77.0); PLATELET COUNT 180 10^3/UL (140-415); RED BLOOD COUNT 4.46 10^6/ul (4.70-6.10); RED CELL DISTRIBUTION WIDTH 12.8 % (11.5-14.5)
[2018-07-17 06:16] LABS: ANION GAP 8 (5-13); BLOOD UREA NITROGEN 25 mg/dl (7-20); CALCIUM 8.7 mg/dl (8.4-10.2); CARBON DIOXIDE 26 mmol/L (21-31); CHLORIDE 107 mmol/L (97-110); CREATININE 1.25 mg/dl (0.61-1.24); Estimated GFR 57 mL/min (>60); GLUCOSE 152 mg/dl (70-220); MAGNESIUM 2.3 mg/dl (1.7-2.5); PHOSPHORUS 3.5 mg/dl (2.5-4.9); POTASSIUM 4.3 mmol/L (3.5-5.1); SODIUM 141 mmol/L (135-144)
[2018-07-17] MEDS: POLYETHYLENE GLYCOL 3350 119 GM POWDER PO (06:26)
[2018-07-17] MEDS: PANTOPRAZOLE 40 MG INJ IV (06:57)
[2018-07-17] MEDS: BISACODYL (EC) 5 MG TAB PO (07:02)
[2018-07-17] MEDS: FINASTERIDE 5 MG TAB PO (08:28)
[2018-07-17] MEDS: RANOLAZINE (SR) 500 MG TAB PO (08:28)
[2018-07-17 12:58] LABS: OCCULT BLOOD STOOL NEGATIVE (NEGATIVE)
[2018-07-17] MEDS: PROPOFOL 20 ML ×2 (15:21→16:06)
[2018-07-17] MEDS ORDERED: EPHEDrine SULFATE 50 MG/5 ML SYG IV (16:30)
[2018-07-17] MEDS ORDERED: FENTAnyl 50 MCG/ML VIAL IV (16:30)
[2018-07-17] MEDS ORDERED: hydrALAzine 20 MG INJ IV (16:30)
[2018-07-17] MEDS ORDERED: LABETALOL HCL 20MG INJ IV (16:30)
[2018-07-17] MEDS: SENNA TAB PO (20:13)
[2018-07-18] MEDS: HYDROCODONE/APAP (5/325) TAB PO ×2 (01:57→10:25)
[2018-07-18] MEDS: PANTOPRAZOLE 40 MG INJ IV (05:42)
[2018-07-18] MEDS: FINASTERIDE 5 MG TAB PO (10:16)
[2018-07-18] MEDS: SENNA TAB PO ×2 (10:17→20:30)
[2018-07-18] MEDS: RANOLAZINE (SR) 500 MG TAB PO (10:17)
[2018-07-18 12:42] LABS: ADD MAN DIFF? NO
[2018-07-18 12:45] LABS: BASOPHIL # 0.1 10^3/ul (0.0-0.1); BASOPHILS % 0.7 % (0.0-2.0); EOSINOPHILS # 0.2 10^3/ul (0.0-0.5); EOSINOPHILS % 2.1 % (0.0-7.0); HEMATOCRIT 40.9 % (42.0-52.0); HEMOGLOBIN 13.3 g/dl (14.0-18.0); LYMPHOCYTES # 1.3 10^3/ul (0.8-2.9); LYMPHOCYTES % 14.1 % (15.0-51.0); MEAN CORPUSCULAR HEMOGLOBIN 29.5 pg (29.0-33.0); MEAN CORPUSCULAR HGB CONC 32.5 g/dl (32.0-37.0); MEAN CORPUSCULAR VOLUME 90.7 fl (82.0-101.0); MEAN PLATELET VOLUME 9.1 fl (7.4-10.4); MONOCYTE # 0.9 10^3/ul (0.3-0.9); MONOCYTES % 9.2 % (0.0-11.0); NEUTROPHILS % 73.5 % (39.0-77.0); PLATELET COUNT 188 10^3/UL (140-415); RED BLOOD COUNT 4.51 10^6/ul (4.70-6.10)
[2018-07-18 12:45] LABS: WHITE BLOOD COUNT 9.5 10^3/ul (4.8-10.8)
[2018-07-18 13:05] LABS: ALANINE AMINOTRANSFERASE 27 IU/L (13-69); ALBUMIN 3.7 g/dl (3.3-4.9); ALBUMIN/GLOBULIN RATIO 1.27; ALKALINE PHOSPHATASE 69 IU/L (42-121); ANION GAP 9 (5-13); ASPARTATE AMINO TRANSFERASE 28 IU/L (15-46); BILIRUBIN,INDIRECT 0.5 mg/dl (0-1.1); BILIRUBIN,TOTAL 0.5 mg/dl (0.2-1.3); BLOOD UREA NITROGEN 22 mg/dl (7-20); CALCIUM 8.5 mg/dl (8.4-10.2); CARBON DIOXIDE 26 mmol/L (21-31); CHLORIDE 105 mmol/L (97-110); CREATININE 1.29 mg/dl (0.61-1.24); Estimated GFR 55 mL/min (>60); GLUCOSE 155 mg/dl (70-220); PHOSPHORUS 3.6 mg/dl (2.5-4.9); SODIUM 140 mmol/L (135-144); TOTAL PROTEIN 6.6 g/dl (6.1-8.1)
[2018-07-18] MEDS: CLOPIDOGREL 75 MG TAB PO (13:42)
[2018-07-18] MEDS: DIGOXIN 0.125 MG TAB PO (13:42)
[2018-07-19 05:23] LABS: ADD MAN DIFF? NO
[2018-07-19 05:25] LABS: BASOPHIL # 0.1 10^3/ul (0.0-0.1); BASOPHILS % 0.5 % (0.0-2.0); EOSINOPHILS # 0.3 10^3/ul (0.0-0.5); EOSINOPHILS % 3.7 % (0.0-7.0); HEMATOCRIT 39.6 % (42.0-52.0); HEMOGLOBIN 13.1 g/dl (14.0-18.0); LYMPHOCYTES # 1.5 10^3/ul (0.8-2.9); LYMPHOCYTES % 16.4 % (15.0-51.0); MEAN CORPUSCULAR HGB CONC 33.1 g/dl (32.0-37.0); MEAN CORPUSCULAR VOLUME 90.6 fl (82.0-101.0); MEAN PLATELET VOLUME 9.6 fl (7.4-10.4); MONOCYTE # 0.9 10^3/ul (0.3-0.9); MONOCYTES % 9.3 % (0.0-11.0); NEUTROPHIL # 6.3 10^3/ul (1.6-7.5); NEUTROPHILS % 69.3 % (39.0-77.0); PLATELET COUNT 171 10^3/UL (140-415); RED BLOOD COUNT 4.37 10^6/ul (4.70-6.10); RED CELL DISTRIBUTION WIDTH 12.8 % (11.5-14.5)
[2018-07-19 05:25] LABS: WHITE BLOOD COUNT 9.1 10^3/ul (4.8-10.8)
[2018-07-19] MEDS: PANTOPRAZOLE 40 MG INJ IV (05:46)
[2018-07-19 05:49] LABS: ANION GAP 8 (5-13); BLOOD UREA NITROGEN 21 mg/dl (7-20); CALCIUM 8.4 mg/dl (8.4-10.2); CARBON DIOXIDE 28 mmol/L (21-31); CHLORIDE 104 mmol/L (97-110); CREATININE 1.38 mg/dl (0.61-1.24); Estimated GFR 51 mL/min (>60); GLUCOSE 177 mg/dl (70-220); PHOSPHORUS 3.5 mg/dl (2.5-4.9); POTASSIUM 3.9 mmol/L (3.5-5.1); SODIUM 140 mmol/L (135-144)
[2018-07-19] MEDS: FINASTERIDE 5 MG TAB PO (09:10)
[2018-07-19] MEDS: LISINOPRIL 5 MG TAB PO (09:10)
[2018-07-19] MEDS: CLOPIDOGREL 75 MG TAB PO (09:10)
[2018-07-19] MEDS: SENNA TAB PO (09:10)
== END 2018-07-19 16:55 ==
LOC: PP2 07-18 09:27 → E/R 20:33
DX: D12.2 Benign neoplasm of ascending colon (principal); D12.0 Benign neoplasm of cecum; D12.4 Benign neoplasm of descending colon; D12.3 Benign neoplasm of transverse colon; I25.10 Atherosclerotic heart disease of native coronary artery without angina pectoris; I48.92 Unspecified atrial flutter; I42.9 Cardiomyopathy, unspecified; E78.5 Hyperlipidemia, unspecified; E03.9 Hypothyroidism, unspecified; I12.9 Hypertensive chronic kidney disease with stage 1 through stage 4 chronic kidney disease, or unspecified chronic kidney disease; N18.9 Chronic kidney disease, unspecified; N40.0 Benign prostatic hyperplasia without lower urinary tract symptoms
CPT/HCPCS: 45380; 74176; 80048; 80053; 81003; 82270; 82962; 83036; 83690; 83735; 84100; 84436; 84479; 85025; 85610; 85730; 87081; 88305; 90686; 93005; 93970; 97162; 99285-25; G0378